=== PATIENT | male | born 1975 | race Caucasian/White ===

== ENCOUNTER → 2022-10-03 | Emergency (ER) | payer MEDICAID ==
[~2022-10-03] VITALS: Ht 188 cm; Wt 104.3 kg
[2022-10-03 17:05] VITALS: BP_SYST 142
--- NOTE | 2022-10-03 17:09 | NUR ---
Patient triaged and placed in waiting room. VSS and patient appears in no acute distress at this time. Accompanied by , awaiting available bed, and DR. SHAKIRA DOE notified of need for MSE.
--- NOTE | 2022-10-03 17:18 | NUR ---
ER Dr. ROSENBERG examining patient IN WAITING ROOM.
--- NOTE | 2022-10-03 19:04 | NUR ---
Patient does not wish to proceed with medical care recommended by DR. SHAKIRA MD . Patient given information related to possible complications, up to and including , which could occur as a result of leaving hospital at this time. Patient verbalizes understanding of risks involved leaving against medical advice. Patient has signed AMA form.
== END | disposition home or self-care (01) ==
LOC: SED 16:30
DX: H33.21 Serous retinal detachment, right eye (principal); H57.11 Ocular pain, right eye; Z79.899 Other long term (current) drug therapy
CPT/HCPCS: 99282